=== PATIENT | female | born 1950 | race Caucasian/White ===

== ENCOUNTER → 2017-02-24 | Outpatient (CLI) | payer BC ==
--- NOTE | 2017-02-25 01:32 | US ---
Procedure: US PELVIS Exam Date: 02/24/2017 Ordering Provider: Vanita Restrepo Clinical Indication: N93.9, Z78.0, pelvic pain and bleeding Comparison: None Technique: Transabdominal ultrasound of the pelvis was obtained. Findings: The uterus measures 10.3 x 6.6 x 5.6 cm . There is a 6.0 x 3.7 x 4.5 cm heterogenous myometrial mass which is without significant vascularity on color Doppler. Power Doppler was not applied. The endometrial complex measures 3.3 mm which is within normal limits. There are no masses. The right ovary measures 1.9 x 2.2 x 1.4 cm. There are no suspicious solid or cystic masses. The left ovary measures 2.5 x 2.6 x 1.4 cm. There are no suspicious solid or cystic masses. No pelvic free fluid. Impression: 1. Complex myometrial mass may represent a fibroid although a leiomyosarcoma can have a similar imaging appearance. Contrast-enhanced MRI of the pelvis is recommended for further evaluation. Electronically signed by: Sheldon Richardson MD 02/25/2017 1:31 AM CDT
== END | disposition home or self-care (01) ==
LOC: YCFC.O 13:44
PROVIDERS: ATTEND Nurse Practitioner Family
DX: N93.9 Abnormal uterine and vaginal bleeding, unspecified (principal)

== ENCOUNTER → 2017-05-30 | Outpatient (CLI) | payer BC ==
--- NOTE | 2017-05-31 10:18 | RAD ---
EXAM DESCRIPTION: Chest,2 Views CLINICAL HISTORY: DYSPNEA COMPARISON: August 03, 2016 TECHNIQUE: PA/lateral FINDINGS: Marked deterioration of the lung shepard with diffusely coarsened interstitial markings in both lungs is present with more dense acute consolidation or edema involving the right parahilar and lower lung field with a small amount of pleural fluid. Differential diagnosis lies between acute interstitial and alveolar pneumonitis or acute pulmonary edema with both interstitial and alveolar component with a small right pleural effusion. Cardiac silhouette is very slightly more prominent on the PA view only. My initial reaction was administered at this represents an acute inflammatory process and pneumonitis but the possibility of mixed interstitial and alveolar edema cannot be completely excluded. Correlation with whether the patient has a productive cough, fever, and elevated white count is recommended. IMPRESSION: Marked deterioration of the chest with diffuse interstitial changes both lungs and alveolar consolidation or edema in the right parahilar and lower lung field with small right pleural effusion. Possibility of a mixed interstitial and alveolar pneumonitis or acute edema with early cardiac decompensation and pulmonary edema should both be considered. Electronically signed by: Van Thibodeaux MD 05/31/2017 9:56 AM CDT
== END ==
LOC: YCFC.O 12:11
PROVIDERS: ATTEND Nurse Practitioner Family
DX: R06.00 Dyspnea, unspecified (principal)